=== PATIENT | male | born 1970 | race Hispanic/Latino ===

== ENCOUNTER 2020-07-05 20:43 | Inpatient (IN) | payer SELFPAY ==
[~2020-07-05] VITALS: Ht 167.6 cm; Wt 64.4 kg
[2020-07-05] MEDS ORDERED: NITROGLYCERIN 2% OINT 1 GM PKT TOP ONE (21:00)
[2020-07-05] MEDS ORDERED: ONDANSETRON HCL INJ 2MG/ML 2ML 2 MG/ML VIAL IV PRN (21:00)
[2020-07-05] MEDS ORDERED: SODIUM CHLORIDE 0.9% 500ML 500 ML IV STA (21:02)
[2020-07-05] MEDS ORDERED: LABETALOL HCL 5 MG/ML 20ML VIAL IV STA (21:05)
[2020-07-05] MEDS ORDERED: LABETALOL HCL 20 ML ONE (21:15)
[2020-07-05] MEDS ORDERED: ONDANSETRON HCL INJ 2MG/ML 2ML 2 MG/ML VIAL ONE (21:15)
[2020-07-05] MEDS ORDERED: NITROGLYCERIN 2% OINT 1 GM PKT ONE (21:15)
[2020-07-05] MEDS ORDERED: SODIUM CHLORIDE 0.9% 500ML 500 ML ONE (21:15)
[2020-07-05] MEDS ORDERED: ACETAMINOPHEN 325 MG TAB PO ONE (21:15)
[2020-07-05] MEDS ORDERED: CEFTRIAXONE SOD 1 GRAM/0.9% SOD CHL 50ML BAG IV SCH (21:15)
[2020-07-05] MEDS ORDERED: AZITHROMYCIN 500MG/SOD CHL 0.9% 250ML BAG IV SCH (21:15)
[2020-07-05] MEDS ORDERED: AZITHROMYCIN 500MG/NS 250 ML 250 ML ONE (21:17)
[2020-07-05] MEDS ORDERED: CEFTRIAXONE SOD 1 GM VIAL ONE (21:17)
[2020-07-05] MEDS ORDERED: ACETAMINOPHEN 325 MG TAB ONE (21:20)
[2020-07-05] MEDS ORDERED: DEXTROSE 50% SYRINGE 50 ML IV PRN (23:30)
[2020-07-05] MEDS ORDERED: SODIUM CHLORIDE 0.9% 1000ML 1,000 ML IV STA (23:30)
[2020-07-05] MEDS ORDERED: DEXAMETHASONE SOD PHOS 10 MG/1 ML VIAL IV STA (23:30)
[2020-07-05 23:40] VITALS: BP 156/82
[2020-07-06] VITALS (17 sets, daily range): BP systolic 104–196; BP diastolic 47–105
[2020-07-06 05:57] LABS: BASOPHILS # (AUTO) 0.1 (0.0-0.1); BASOPHILS % 0.4 % (0.0-1.0); EOSINOPHILS % 0.2 % (0.0-6.0); HEMATOCRIT 27.6 % (38.2-49.6); HEMOGLOBIN 8.7 g/dL (14.0-18.0); LYMPHOCYTES # (AUTO) 0.3 (1.0-3.2); LYMPHOCYTES % 2.5 % (18.0-39.1); MEAN CORPUSCULAR HEMOGLOBIN 28.9 pg (28-32); MEAN CORPUSCULAR HGB CONC 31.5 g/dL (31-35); MEAN CORPUSCULAR VOLUME 91.7 fL (81-99); MONOCYTES # (AUTO) 0.3 (0.2-0.8); MONOCYTES % 2.4 % (4.4-11.3); NEUTROPHILS # (AUTO) 10.6 (2.1-6.9); NEUTROPHILS % 94.1 % (38.7-80.0); PLATELET COUNT 212 x10e3/uL (140-360); RED BLOOD COUNT 3.01 x10e6/uL (4.3-5.7); RED CELL DISTRIBUTION WIDTH 15.9 % (11.7-14.4)
[2020-07-06 05:59] LABS: ANION GAP 13.8 mmol/L (8-16); CREATININE, SERUM 6.08 mg/dL (0.72-1.25); POTASSIUM 5.8 mmol/L (3.5-5.1)
[2020-07-06 06:20] LABS: CREATINE KINASE 189 IU/L (30-200)
[2020-07-06] MEDS: INSULIN REGULAR, HUMAN 100 UNIT/1 ML 3ML VIAL SQ SCH ×4 (07:30→22:22)
[2020-07-06] MEDS ORDERED: CALCIUM CHLORIDE 13.6 MEQ in SODIUM CHLORIDE 0.9% 100 ML 100 ML IV ONE (10:00)
[2020-07-06] MEDS ORDERED: DEXTROSE 50% SYRINGE 50 ML IV ONE (10:15)
[2020-07-06] MEDS ORDERED: INSULIN REGULAR, HUMAN 100 UNIT/1 ML 3ML VIAL IV ONE (10:15)
[2020-07-06] MEDS ORDERED: DEXAMETHASONE SOD PHOS 10 MG/1 ML VIAL IV SCH (10:30)
[2020-07-06] MEDS ORDERED: SOD POLYSTYRENE SULFONATE SUSP 15 GM/60 ML BTL PO ONE (10:30)
[2020-07-06] MEDS ORDERED: CALCIUM GLUCONATE 10% INJ 4.65 MEQ in SODIUM CHLORIDE 0.9% 50ML 50 ML IV ONE (11:00)
[2020-07-06] MEDS ORDERED: LABETALOL HCL 20 ML ONE (11:29)
[2020-07-06] MEDS ORDERED: LABETALOL HCL 5 MG/ML 20ML VIAL IV ONE (11:45)
[2020-07-06] MEDS: SODIUM BICARBONATE 8.4% 150 ML in DEXTROSE 5% 1,000 ML IV SCH (12:32)
[2020-07-06] MEDS: ZINC SULFATE 220 MG CAP PO SCH (12:32)
[2020-07-06] MEDS: CLONIDINE HCL 0.3MG/24 HR PATCH TOP SCH (13:40)
[2020-07-06] MEDS ORDERED: HYDRALAZINE HCL 20 MG/ML VIAL IV ONE (13:50)
[2020-07-06] MEDS ORDERED: HEPARIN SOD (PORCINE) 1000 UNIT/ML SDV ONE (14:05)
[2020-07-06 14:07] LABS: CREATINE KINASE MB 4.9 ng/mL (0-5.0)
[2020-07-06 14:12] LABS: CLARITY,URINE CLEAR (CLEAR); COLOR,URINE YELLOW (YELLOW); LEUKOCYTE ESTERASE ,URINE NEGATIVE (NEGATIVE); NITRITE,URINE NEGATIVE (NEGATIVE)
[2020-07-06 14:13] LABS: PROTEIN,URINE DIPSTICK >=300 (NEGATIVE)
[2020-07-06 14:16] LABS: KETONES,URINE NEGATIVE (NEGATIVE); URINE UROBILINOGEN 0.2 mg/dL (0.2 - 1)
[2020-07-06 14:21] LABS: BACTERIA,URINE MODERATE /HPF; EPITHELIAL CELLS,URINE RARE /LPF; HYALINE CASTS 0-1 (0-1); RBC,URINE 0-5 /HPF (0-5)
[2020-07-06] MEDS: ASCORBIC ACID 500 MG TAB PO SCH (17:16)
[2020-07-06 19:14] LABS: CREATINE KINASE MB 5.4 ng/mL (0-5.0)
[2020-07-06] MEDS ORDERED: SODIUM CHLORIDE 0.9% 1000ML 2,000 ML IV PRN (19:15)
[2020-07-06] MEDS ORDERED: HEPARIN SOD (PORCINE) 1000 UNIT/ML SDV IV PRN (19:15)
[2020-07-06] MEDS: LABETALOL HCL 5 MG/ML 20ML VIAL IV PRN (19:32)
[2020-07-06] MEDS ORDERED: ACETAMINOPHEN 325 MG TAB ONE (21:43)
[2020-07-06] MEDS: AZITHROMYCIN 500MG/NS 250 ML 250 ML IV SCH (22:21)
[2020-07-06] MEDS: ACETAMINOPHEN 325 MG TAB PO PRN (22:23)
[2020-07-07] VITALS (17 sets, daily range): BP systolic 141–194; BP diastolic 75–100
[2020-07-07] MEDS: LABETALOL HCL 5 MG/ML 20ML VIAL IV PRN
[2020-07-07] MEDS: SODIUM BICARBONATE 8.4% 150 ML in DEXTROSE 5% 1,000 ML IV SCH ×3 (03:19→23:05)
[2020-07-07] MEDS ORDERED: NICARDIPINE 20MG/200ML PREMIX 200 ML IV PRN ×2 (05:00→19:45)
[2020-07-07 06:01] LABS: BASOPHILS % 0.3 % (0.0-1.0); EOSINOPHILS % 0.1 % (0.0-6.0); HEMATOCRIT 24.4 % (38.2-49.6); HEMOGLOBIN 7.9 g/dL (14.0-18.0); LYMPHOCYTES # (AUTO) 1.2 (1.0-3.2); LYMPHOCYTES % 10.2 % (18.0-39.1); MEAN CORPUSCULAR HEMOGLOBIN 28.8 pg (28-32); MEAN CORPUSCULAR HGB CONC 32.4 g/dL (31-35); MEAN CORPUSCULAR VOLUME 89.1 fL (81-99); MONOCYTES # (AUTO) 0.7 (0.2-0.8); NEUTROPHILS # (AUTO) 9.9 (2.1-6.9); PLATELET COUNT 209 x10e3/uL (140-360); RED BLOOD COUNT 2.74 x10e6/uL (4.3-5.7); RED CELL DISTRIBUTION WIDTH 15.5 % (11.7-14.4)
[2020-07-07 06:19] LABS: ALBUMIN 2.1 g/dL (3.5-5.0); ALBUMIN/GLOBULIN RATIO 0.6 (0.8-2.0); ANION GAP 14.6 mmol/L (8-16); CREATININE, SERUM 4.85 mg/dL (0.72-1.25); POTASSIUM 3.6 mmol/L (3.5-5.1)
[2020-07-07 06:22] LABS: CALCIUM 6.9 mg/dL (8.4-10.2)
[2020-07-07] MEDS: INSULIN REGULAR, HUMAN 100 UNIT/1 ML 3ML VIAL SQ SCH ×5 (07:25→23:00)
[2020-07-07] MEDS: ASCORBIC ACID 500 MG TAB PO SCH ×2 (08:13→16:51)
[2020-07-07] MEDS: ZINC SULFATE 220 MG CAP PO SCH (08:13)
[2020-07-07] MEDS: OYST-CAL-D 500MG TABLET PO SCH ×2 (08:13→16:51)
[2020-07-07] MEDS: DEXAMETHASONE SOD PHOS INJ 4 MG/ML VIAL IV SCH (08:13)
[2020-07-07] MEDS ORDERED: ZINC SULFATE 50 MG CAP PO SCH (09:00)
[2020-07-07] MEDS: CEFTRIAXONE SOD 2 GM/NS 100 ML 100 ML IV SCH (10:00)
[2020-07-07] MEDS: ACETAMINOPHEN 325 MG TAB PO PRN (12:06)
[2020-07-07] MEDS: HYDRALAZINE HCL 25 MG TAB PO SCH ×2 (12:06→16:57)
[2020-07-07] MEDS: NIFEDIPINE CR 30 MG TAB PO SCH (12:07)
[2020-07-07] MEDS ORDERED: HYDRALAZINE HCL 25 MG TAB PO SCH (17:00)
[2020-07-07] MEDS ORDERED: ALTEPLASE 50 MG/VIAL (29 MILLION IU) IV ONE ×2 (19:00)
[2020-07-07] MEDS ORDERED: SODIUM CHLORIDE 0.9% 100 ML ONE (19:14)
[2020-07-07] MEDS: ASPIRIN 81 MG CHEW TAB PO SCH (19:31)
[2020-07-07] MEDS: AZITHROMYCIN 500MG/NS 250 ML 250 ML IV SCH (22:29)
[2020-07-08] VITALS (17 sets, daily range): BP systolic 129–163; BP diastolic 73–93
[2020-07-08 06:53] LABS: BASOPHILS % 0.2 % (0.0-1.0); EOSINOPHILS % 0.1 % (0.0-6.0); HEMATOCRIT 23.4 % (38.2-49.6); HEMOGLOBIN 7.4 g/dL (14.0-18.0); LYMPHOCYTES # (AUTO) 0.9 (1.0-3.2); LYMPHOCYTES % 9.1 % (18.0-39.1); MEAN CORPUSCULAR HEMOGLOBIN 28.7 pg (28-32); MEAN CORPUSCULAR HGB CONC 31.6 g/dL (31-35); MEAN CORPUSCULAR VOLUME 90.7 fL (81-99); MONOCYTES # (AUTO) 0.6 (0.2-0.8); MONOCYTES % 6.5 % (4.4-11.3); NEUTROPHILS # (AUTO) 8.2 (2.1-6.9); NEUTROPHILS % 83.7 % (38.7-80.0); PLATELET COUNT 178 x10e3/uL (140-360); RED BLOOD COUNT 2.58 x10e6/uL (4.3-5.7); RED CELL DISTRIBUTION WIDTH 14.9 % (11.7-14.4)
[2020-07-08 07:04] LABS: INR 1.28; PROTHROMBIN TIME 16.6 seconds (11.9-14.5)
[2020-07-08 07:12] LABS: ALBUMIN 1.9 g/dL (3.5-5.0); ALBUMIN/GLOBULIN RATIO 0.5 (0.8-2.0); ANION GAP 12.2 mmol/L (8-16); CREATININE, SERUM 4.54 mg/dL (0.72-1.25); POTASSIUM 3.2 mmol/L (3.5-5.1)
[2020-07-08 07:14] LABS: CALCIUM 6.2 mg/dL (8.4-10.2)
[2020-07-08] MEDS: INSULIN REGULAR, HUMAN 100 UNIT/1 ML 3ML VIAL SQ SCH ×4 (07:53→21:45)
[2020-07-08] MEDS: HYDRALAZINE HCL 25 MG TAB PO SCH ×2 (08:19→17:33)
[2020-07-08] MEDS: DEXAMETHASONE SOD PHOS INJ 4 MG/ML VIAL IV SCH (08:19)
[2020-07-08] MEDS: NIFEDIPINE CR 30 MG TAB PO SCH (08:19)
[2020-07-08] MEDS: ASCORBIC ACID 500 MG TAB PO SCH ×2 (08:19→17:33)
[2020-07-08] MEDS: ZINC SULFATE 220 MG CAP PO SCH (08:19)
[2020-07-08] MEDS: OYST-CAL-D 500MG TABLET PO SCH ×2 (08:19→17:33)
[2020-07-08] MEDS: CEFTRIAXONE SOD 2 GM/NS 100 ML 100 ML IV SCH (08:42)
[2020-07-08] MEDS ORDERED: NIFEDIPINE CR 30 MG TAB PO SCH (09:00)
[2020-07-08] MEDS ORDERED: POTASSIUM CHLORIDE 20 MEQ TAB CR PO PRN (10:15)
[2020-07-08] MEDS: SODIUM BICARBONATE 8.4% 150 ML in DEXTROSE 5% 1,000 ML IV SCH ×2 (10:51→22:31)
[2020-07-08] MEDS: AZITHROMYCIN 500MG/NS 250 ML 250 ML IV SCH (22:07)
[2020-07-08] MEDS: ACETAMINOPHEN 325 MG TAB PO PRN (22:32)
[2020-07-09] VITALS (25 sets, daily range): BP systolic 126–171; BP diastolic 74–102
[2020-07-09 06:50] LABS: BASOPHILS % 0.2 % (0.0-1.0); HEMOGLOBIN 7.9 g/dL (14.0-18.0); LYMPHOCYTES % 10.4 % (18.0-39.1); MEAN CORPUSCULAR HEMOGLOBIN 27.8 pg (28-32); MEAN CORPUSCULAR HGB CONC 31.6 g/dL (31-35); MONOCYTES # (AUTO) 0.5 (0.2-0.8); MONOCYTES % 5.7 % (4.4-11.3); NEUTROPHILS # (AUTO) 7.8 (2.1-6.9); NEUTROPHILS % 83.3 % (38.7-80.0); PLATELET COUNT 183 x10e3/uL (140-360); RED BLOOD COUNT 2.84 x10e6/uL (4.3-5.7); RED CELL DISTRIBUTION WIDTH 14.6 % (11.7-14.4)
[2020-07-09 07:15] LABS: ALBUMIN 1.8 g/dL (3.5-5.0); ALBUMIN/GLOBULIN RATIO 0.5 (0.8-2.0); ANION GAP 16.5 mmol/L (8-16); CREATININE, SERUM 5.25 mg/dL (0.72-1.25); POTASSIUM 3.5 mmol/L (3.5-5.1)
[2020-07-09 07:22] LABS: CALCIUM 6.2 mg/dL (8.4-10.2)
[2020-07-09] MEDS: ASPIRIN 325 MG TAB PO SCH (08:02)
[2020-07-09] MEDS: HYDRALAZINE HCL 25 MG TAB PO SCH ×2 (08:02→16:41)
[2020-07-09] MEDS: ASPIRIN 81 MG CHEW TAB PO SCH (08:02)
[2020-07-09] MEDS: CEFTRIAXONE SOD 2 GM/NS 100 ML 100 ML IV SCH (08:02)
[2020-07-09] MEDS: DEXAMETHASONE SOD PHOS INJ 4 MG/ML VIAL IV SCH (08:02)
[2020-07-09] MEDS: NIFEDIPINE CR 30 MG TAB PO SCH (08:03)
[2020-07-09] MEDS: ASCORBIC ACID 500 MG TAB PO SCH ×2 (08:03→16:41)
[2020-07-09] MEDS: OYST-CAL-D 500MG TABLET PO SCH ×2 (08:03→16:41)
[2020-07-09] MEDS: ZINC SULFATE 220 MG CAP PO SCH (08:03)
[2020-07-09] MEDS: INSULIN REGULAR, HUMAN 100 UNIT/1 ML 3ML VIAL SQ SCH ×4 (08:04→22:00)
[2020-07-09] MEDS: SODIUM BICARBONATE 8.4% 150 ML in DEXTROSE 5% 1,000 ML IV SCH (09:51)
[2020-07-09] MEDS ORDERED: VANCOMYCIN 1GM/NS 250 ML 250 ML IV ONE (10:30)
[2020-07-09 10:44] LABS: ABG PCO2 40 mmHg (35-45); ABG PH 7.51 (7.35-7.45); ABG PO2 32 mmHg (80-105)
[2020-07-09 10:45] LABS: ABG HCO3 32 mmol/L (22-26); ABG TCO2 34
[2020-07-09] MEDS ORDERED: CALCIUM GLUCONATE 10% INJ 4.65 MEQ in SODIUM CHLORIDE 0.9% 50ML 50 ML IV ONE (11:00)
[2020-07-09] MEDS ORDERED: SODIUM CHLORIDE 0.9% 250ML 500 ML IV PRN (12:00)
[2020-07-09] MEDS ORDERED: HEPARIN SOD (PORCINE) 1000 UNIT/ML SDV IV PRN (12:00)
[2020-07-09] MEDS ORDERED: MANNITOL 25% 12.5GM/50 ML VIAL IV PRN (12:00)
[2020-07-09] MEDS ORDERED: PIPER-TAZ 3.375 GM 50 ML IV SCH (12:00)
[2020-07-09] MEDS ORDERED: ALBUMIN 25% 12.5GM 0.25 GM/ML BTL IV PRN (12:00)
[2020-07-09] MEDS ORDERED: ENOXAPARIN SOD INJ 40 MG/0.4 ML SYR SC SCH (17:00)
[2020-07-09] MEDS: AZITHROMYCIN 500MG/NS 250 ML 250 ML IV SCH (20:25)
[2020-07-09] MEDS: ACETAMINOPHEN 325 MG TAB PO PRN (20:47)
[2020-07-09] MEDS: PIPER-TAZ 3.375 GM 50 ML IV SCH (23:00)
[2020-07-10] VITALS (25 sets, daily range): BP systolic 115–212; BP diastolic 70–107
[2020-07-10] MEDS: ACETAMINOPHEN 325 MG TAB PO PRN ×2 (02:59→09:19)
[2020-07-10] MEDS: PIPER-TAZ 3.375 GM 50 ML IV SCH ×2 (05:05→10:04)
[2020-07-10] MEDS ORDERED: MAGNESIUM HYDROXIDE 30 ML UDC ONE (05:41)
[2020-07-10 06:08] LABS: BASOPHILS % 0.2 % (0.0-1.0); HEMATOCRIT 26.9 % (38.2-49.6); HEMOGLOBIN 8.3 g/dL (14.0-18.0); LYMPHOCYTES # (AUTO) 0.7 (1.0-3.2); LYMPHOCYTES % 4.3 % (18.0-39.1); MEAN CORPUSCULAR HEMOGLOBIN 27.9 pg (28-32); MEAN CORPUSCULAR HGB CONC 30.9 g/dL (31-35); MEAN CORPUSCULAR VOLUME 90.3 fL (81-99); MONOCYTES # (AUTO) 0.3 (0.2-0.8); MONOCYTES % 1.6 % (4.4-11.3); NEUTROPHILS # (AUTO) 15.4 (2.1-6.9); NEUTROPHILS % 93.3 % (38.7-80.0); PLATELET COUNT 229 x10e3/uL (140-360); RED BLOOD COUNT 2.98 x10e6/uL (4.3-5.7); RED CELL DISTRIBUTION WIDTH 14.6 % (11.7-14.4)
[2020-07-10 06:32] LABS: ALBUMIN 1.9 g/dL (3.5-5.0); ALBUMIN/GLOBULIN RATIO 0.5 (0.8-2.0); ANION GAP 15.8 mmol/L (8-16); CALCIUM 7.1 mg/dL (8.4-10.2); CREATININE, SERUM 3.48 mg/dL (0.72-1.25); POTASSIUM 3.8 mmol/L (3.5-5.1)
[2020-07-10] MEDS: NIFEDIPINE CR 30 MG TAB PO SCH (08:16)
[2020-07-10] MEDS: ASCORBIC ACID 500 MG TAB PO SCH ×2 (08:16→16:23)
[2020-07-10] MEDS: OYST-CAL-D 500MG TABLET PO SCH ×2 (08:16→16:23)
[2020-07-10] MEDS: ZINC SULFATE 220 MG CAP PO SCH (08:16)
[2020-07-10] MEDS: DEXAMETHASONE SOD PHOS INJ 4 MG/ML VIAL IV SCH (08:16)
[2020-07-10] MEDS: HYDRALAZINE HCL 25 MG TAB PO SCH ×2 (08:16→16:23)
[2020-07-10] MEDS: ASPIRIN 325 MG TAB PO SCH (08:16)
[2020-07-10] MEDS: INSULIN REGULAR, HUMAN 100 UNIT/1 ML 3ML VIAL SQ SCH ×4 (08:21→21:00)
[2020-07-10] MEDS ORDERED: FLUCONAZOLE 100 MG/NS 50 ML 50 ML IV SCH (09:30)
[2020-07-10] MEDS ORDERED: NOREPINEPHRINE 8 MG/D5W 250 ML 250 ML ONE (09:45)
[2020-07-10] MEDS ORDERED: PROPOFOL IV EMULSION 10MG/ML 100 ML IV PRN (10:00)
[2020-07-10] MEDS: LABETALOL HCL 5 MG/ML 20ML VIAL IV PRN (10:05)
[2020-07-10] MEDS: FENTANYL CITRATE INJ 2,000 MCG in SODIUM CHLORIDE 0.9% 250ML 210 ML IV PRN ×2 (10:25→18:04)
[2020-07-10] MEDS ORDERED: FENTANYL 2000MCG/NS 250 250 ML ONE (10:26)
[2020-07-10 10:29] LABS: ABG HCO3 25 mmol/L (22-26); ABG PCO2 35 mmHg (35-45); ABG PH 7.46 (7.35-7.45); ABG PO2 39 mmHg (80-105); ABG TCO2 26
[2020-07-10] MEDS ORDERED: VECURONIUM BROMIDE FOR INJ 20 MG VIAL ONE (13:04)
[2020-07-10] MEDS ORDERED: ETOMIDATE 2 MG/ML 10 ML INJ IV ONE (13:04)
[2020-07-10 13:51] LABS: ABG HCO3 28 mmol/L (22-26); ABG PCO2 44 mmHg (35-45); ABG PH 7.41 (7.35-7.45); ABG PO2 194 mmHg (80-105); ABG TCO2 29
[2020-07-10] MEDS: LINEZOLID 600 MG/D5W 300ML 300 ML IV SCH (16:22)
[2020-07-10] MEDS: MEROPENEM 1GM 100 ML IV SCH (17:30)
[2020-07-10] MEDS: PROPOFOL IV EMULSION 50 ML IV PRN ×2 (17:43→21:40)
[2020-07-10] MEDS: HEPARIN SOD (PORCINE) 5,000 UNIT/ML VIAL SC SCH (21:39)
[2020-07-11] VITALS (17 sets, daily range): BP systolic 92–154; BP diastolic 56–94
[2020-07-11] MEDS ORDERED: LACTULOSE SYRUP 20 GM/30 ML UDC PO ONE
[2020-07-11] MEDS ORDERED: BISACODYL 10 MG SUPP PR ONE
[2020-07-11] MEDS: LINEZOLID 600 MG/D5W 300ML 300 ML IV SCH ×2 (01:42→14:25)
[2020-07-11] MEDS: PROPOFOL IV EMULSION 50 ML IV PRN ×4 (04:00→22:42)
[2020-07-11 05:32] LABS: BASOPHILS % 0.2 % (0.0-1.0); HEMATOCRIT 26.3 % (38.2-49.6); HEMOGLOBIN 8.1 g/dL (14.0-18.0); LYMPHOCYTES # (AUTO) 0.6 (1.0-3.2); LYMPHOCYTES % 5.1 % (18.0-39.1); MEAN CORPUSCULAR HEMOGLOBIN 28.6 pg (28-32); MEAN CORPUSCULAR HGB CONC 30.8 g/dL (31-35); MEAN CORPUSCULAR VOLUME 92.9 fL (81-99); MONOCYTES # (AUTO) 0.2 (0.2-0.8); MONOCYTES % 1.6 % (4.4-11.3); NEUTROPHILS # (AUTO) 11.5 (2.1-6.9); NEUTROPHILS % 92.7 % (38.7-80.0); PLATELET COUNT 230 x10e3/uL (140-360); RED BLOOD COUNT 2.83 x10e6/uL (4.3-5.7); RED CELL DISTRIBUTION WIDTH 14.9 % (11.7-14.4)
[2020-07-11 05:54] LABS: ALBUMIN 1.7 g/dL (3.5-5.0); ALBUMIN/GLOBULIN RATIO 0.4 (0.8-2.0); ANION GAP 13.4 mmol/L (8-16); CALCIUM 7.4 mg/dL (8.4-10.2); CREATININE, SERUM 3.17 mg/dL (0.72-1.25); POTASSIUM 4.4 mmol/L (3.5-5.1)
[2020-07-11] MEDS: INSULIN REGULAR, HUMAN 100 UNIT/1 ML 3ML VIAL SQ SCH ×3 (06:30→17:39)
[2020-07-11] MEDS: DEXAMETHASONE SOD PHOS INJ 4 MG/ML VIAL IV SCH (08:26)
[2020-07-11] MEDS: ASCORBIC ACID 500 MG TAB PO SCH ×2 (08:27→17:22)
[2020-07-11] MEDS: OYST-CAL-D 500MG TABLET PO SCH ×2 (08:27→17:22)
[2020-07-11] MEDS: ACETAMINOPHEN 325 MG TAB PO PRN (08:27)
[2020-07-11] MEDS: HYDRALAZINE HCL 25 MG TAB PO SCH ×2 (08:27→18:14)
[2020-07-11] MEDS: ASPIRIN 325 MG TAB PO SCH (08:27)
[2020-07-11] MEDS: HEPARIN SOD (PORCINE) 5,000 UNIT/ML VIAL SC SCH ×2 (08:29→20:41)
[2020-07-11] MEDS: FENTANYL 2000MCG/NS 250 250 ML IV PRN ×2 (08:33→18:53)
[2020-07-11 08:53] LABS: ABG PH 7.37 (7.35-7.45)
[2020-07-11 08:54] LABS: ABG HCO3 28 mmol/L (22-26); ABG PCO2 49 mmHg (35-45); ABG PO2 46 mmHg (80-105); ABG TCO2 30
[2020-07-11] MEDS: NIFEDIPINE CR 30 MG TAB PO SCH (09:00)
[2020-07-11] MEDS: MEROPENEM 1GM 100 ML IV SCH (17:22)
[2020-07-12] VITALS (17 sets, daily range): BP systolic 94–157; BP diastolic 59–87
[2020-07-12] MEDS: INSULIN REGULAR, HUMAN 100 UNIT/1 ML 3ML VIAL SQ SCH ×4 (00:06→18:10)
[2020-07-12] MEDS: LINEZOLID 600 MG/D5W 300ML 300 ML IV SCH ×2 (02:10→13:36)
[2020-07-12] MEDS: PROPOFOL IV EMULSION 50 ML IV PRN ×4 (02:30→21:23)
[2020-07-12] MEDS: FENTANYL 2000MCG/NS 250 250 ML IV PRN ×2 (04:05→20:06)
[2020-07-12 04:55] LABS: HEMATOCRIT 24.5 % (38.2-49.6); HEMOGLOBIN 7.5 g/dL (14.0-18.0); LYMPHOCYTES # (AUTO) 0.5 (1.0-3.2); LYMPHOCYTES % 5.1 % (18.0-39.1); MEAN CORPUSCULAR HEMOGLOBIN 28.5 pg (28-32); MEAN CORPUSCULAR HGB CONC 30.6 g/dL (31-35); MEAN CORPUSCULAR VOLUME 93.2 fL (81-99); MONOCYTES # (AUTO) 0.2 (0.2-0.8); MONOCYTES % 2.3 % (4.4-11.3); PLATELET COUNT 209 x10e3/uL (140-360); RED BLOOD COUNT 2.63 x10e6/uL (4.3-5.7); RED CELL DISTRIBUTION WIDTH 14.9 % (11.7-14.4)
[2020-07-12 05:10] LABS: INR 1.22
[2020-07-12 05:12] LABS: PARTIAL THROMBOPLASTIN TIME 65.6 seconds (23.8-35.5)
[2020-07-12 05:15] LABS: ALBUMIN 1.5 g/dL (3.5-5.0); ALBUMIN/GLOBULIN RATIO 0.4 (0.8-2.0); ANION GAP 16.9 mmol/L (8-16); CALCIUM 7.4 mg/dL (8.4-10.2); CREATININE, SERUM 4.63 mg/dL (0.72-1.25); POTASSIUM 4.9 mmol/L (3.5-5.1)
[2020-07-12 06:08] LABS: PHOSPHORUS 6.2 MG/DL (2.3-4.7)
[2020-07-12] MEDS: HYDRALAZINE HCL 25 MG TAB PO SCH ×2 (08:03→16:51)
[2020-07-12] MEDS: DEXAMETHASONE SOD PHOS INJ 4 MG/ML VIAL IV SCH (08:03)
[2020-07-12] MEDS: ASCORBIC ACID 500 MG TAB PO SCH ×2 (08:04→16:51)
[2020-07-12] MEDS: ASPIRIN 325 MG TAB PO SCH (08:04)
[2020-07-12] MEDS: OYST-CAL-D 500MG TABLET PO SCH ×2 (08:04→16:51)
[2020-07-12] MEDS: HEPARIN SOD (PORCINE) 5,000 UNIT/ML VIAL SC SCH (08:04)
[2020-07-12] MEDS ORDERED: HEPARIN SOD (PORCINE) 1000 UNIT/ML SDV ONE (09:01)
[2020-07-12] MEDS ORDERED: SODIUM CHLORIDE 0.9% 1000ML 2,000 ML ONE (09:02)
[2020-07-12 11:15] LABS: ABG PCO2 49 mmHg (35-45); ABG PH 7.37 (7.35-7.45); ABG PO2 225 mmHg (80-105)
[2020-07-12 11:16] LABS: ABG HCO3 28 mmol/L (22-26); ABG TCO2 30
[2020-07-12] MEDS: MEROPENEM 1GM 100 ML IV SCH (16:51)
[2020-07-12] MEDS: ENOXAPARIN 30 MG/0.3 ML SYR SC SCH (16:53)
[2020-07-12] MEDS ORDERED: ETOMIDATE 2 MG/ML 10 ML INJ IV STA (20:10)
[2020-07-12] MEDS ORDERED: ROCURONIUM BROMIDE 1 ML IV ONE (20:15)
[2020-07-12 22:48] LABS: ABG HCO3 28 mmol/L (22-26); ABG PCO2 54 mmHg (35-45); ABG PH 7.32 (7.35-7.45); ABG PO2 156 mmHg (80-105); ABG TCO2 29
[2020-07-13] VITALS (27 sets, daily range): BP systolic 117–186; BP diastolic 64–100
[2020-07-13] MEDS: PROPOFOL IV EMULSION 50 ML IV PRN ×5 (00:12→05:58)
[2020-07-13] MEDS: INSULIN REGULAR, HUMAN 100 UNIT/1 ML 3ML VIAL SQ SCH ×5 (00:45→23:50)
[2020-07-13] MEDS: FENTANYL 2000MCG/NS 250 250 ML IV PRN ×2 (01:05→07:35)
[2020-07-13] MEDS: LINEZOLID 600 MG/D5W 300ML 300 ML IV SCH ×2 (01:40→13:19)
[2020-07-13 03:01] LABS: BASOPHILS % 0.1 % (0.0-1.0); HEMATOCRIT 25.1 % (38.2-49.6); HEMOGLOBIN 7.6 g/dL (14.0-18.0); LYMPHOCYTES # (AUTO) 0.5 (1.0-3.2); LYMPHOCYTES % 3.1 % (18.0-39.1); MEAN CORPUSCULAR HGB CONC 30.3 g/dL (31-35); MEAN CORPUSCULAR VOLUME 92.6 fL (81-99); MONOCYTES # (AUTO) 0.4 (0.2-0.8); MONOCYTES % 2.6 % (4.4-11.3); NEUTROPHILS # (AUTO) 13.4 (2.1-6.9); NEUTROPHILS % 93.3 % (38.7-80.0); PLATELET COUNT 222 x10e3/uL (140-360); RED BLOOD COUNT 2.71 x10e6/uL (4.3-5.7); RED CELL DISTRIBUTION WIDTH 15.3 % (11.7-14.4)
[2020-07-13 03:10] LABS: INR 1.14; PROTHROMBIN TIME 15.2 seconds (11.9-14.5)
[2020-07-13 03:11] LABS: PARTIAL THROMBOPLASTIN TIME 54.1 seconds (23.8-35.5)
[2020-07-13 03:21] LABS: ALBUMIN 1.5 g/dL (3.5-5.0); ALBUMIN/GLOBULIN RATIO 0.4 (0.8-2.0); ANION GAP 16.1 mmol/L (8-16); CALCIUM 7.1 mg/dL (8.4-10.2); CREATININE, SERUM 3.19 mg/dL (0.72-1.25); POTASSIUM 4.1 mmol/L (3.5-5.1)
[2020-07-13] MEDS: OYST-CAL-D 500MG TABLET PO SCH ×2 (08:25→15:14)
[2020-07-13] MEDS: HYDRALAZINE HCL 25 MG TAB PO SCH ×2 (08:25→15:21)
[2020-07-13] MEDS: ASPIRIN 325 MG TAB PO SCH (08:25)
[2020-07-13] MEDS: ASCORBIC ACID 500 MG TAB PO SCH ×2 (08:25→15:15)
[2020-07-13] MEDS: DEXAMETHASONE SOD PHOS INJ 4 MG/ML VIAL IV SCH (08:27)
[2020-07-13] MEDS: DEXMEDETOMIDINE 200MCG/NS 50ML 50 ML IV PRN ×2 (09:34→15:51)
[2020-07-13] MEDS: CLONIDINE HCL 0.3MG/24 HR PATCH TOP SCH (13:19)
[2020-07-13 13:42] LABS: ABG HCO3 26 mmol/L (22-26); ABG PCO2 45 mmHg (35-45); ABG PH 7.38 (7.35-7.45); ABG PO2 76 mmHg (80-105); ABG TCO2 28
[2020-07-13 16:05] LABS: ABG HCO3 24 mmol/L (22-26); ABG PCO2 40 mmHg (35-45); ABG PH 7.38 (7.35-7.45); ABG PO2 75 mmHg (80-105); ABG TCO2 25
[2020-07-13] MEDS: ENOXAPARIN 30 MG/0.3 ML SYR SC SCH (16:45)
[2020-07-13] MEDS: MEROPENEM 1GM 100 ML IV SCH (16:45)
[2020-07-13] MEDS: LABETALOL HCL 5 MG/ML 20ML VIAL IV PRN ×2 (17:39→21:40)
[2020-07-14] VITALS (29 sets, daily range): BP systolic 89–188; BP diastolic 60–92
[2020-07-14] MEDS: LABETALOL HCL 5 MG/ML 20ML VIAL IV PRN ×2 (01:40→05:55)
[2020-07-14] MEDS: LINEZOLID 600 MG/D5W 300ML 300 ML IV SCH ×2 (02:14→15:15)
[2020-07-14 05:31] LABS: BASOPHILS % 0.2 % (0.0-1.0); HEMATOCRIT 27.8 % (38.2-49.6); HEMOGLOBIN 8.5 g/dL (14.0-18.0); LYMPHOCYTES # (AUTO) 0.7 (1.0-3.2); LYMPHOCYTES % 4.6 % (18.0-39.1); MEAN CORPUSCULAR HEMOGLOBIN 27.7 pg (28-32); MEAN CORPUSCULAR HGB CONC 30.6 g/dL (31-35); MEAN CORPUSCULAR VOLUME 90.6 fL (81-99); MONOCYTES # (AUTO) 0.4 (0.2-0.8); MONOCYTES % 2.6 % (4.4-11.3); NEUTROPHILS # (AUTO) 14.1 (2.1-6.9); NEUTROPHILS % 88.5 % (38.7-80.0); PLATELET COUNT 273 x10e3/uL (140-360); RED BLOOD COUNT 3.07 x10e6/uL (4.3-5.7); RED CELL DISTRIBUTION WIDTH 14.7 % (11.7-14.4)
[2020-07-14 05:50] LABS: ALBUMIN 1.6 g/dL (3.5-5.0); ALBUMIN/GLOBULIN RATIO 0.4 (0.8-2.0); ANION GAP 20.1 mmol/L (8-16); CALCIUM 7.3 mg/dL (8.4-10.2); CREATININE, SERUM 4.86 mg/dL (0.72-1.25); MAGNESIUM 2.1 MG/DL (1.3-2.1); PHOSPHORUS 3.1 MG/DL (2.3-4.7); POTASSIUM 4.1 mmol/L (3.5-5.1)
[2020-07-14] MEDS: INSULIN REGULAR, HUMAN 100 UNIT/1 ML 3ML VIAL SQ SCH ×3 (06:15→17:48)
[2020-07-14] MEDS: HYDRALAZINE HCL 25 MG TAB PO SCH ×2 (08:28→17:00)
[2020-07-14] MEDS: ASCORBIC ACID 500 MG TAB PO SCH ×2 (08:28→17:00)
[2020-07-14] MEDS: OYST-CAL-D 500MG TABLET PO SCH ×2 (08:28→17:00)
[2020-07-14] MEDS: ASPIRIN 325 MG TAB PO SCH (08:28)
[2020-07-14] MEDS: DEXAMETHASONE SOD PHOS INJ 4 MG/ML VIAL IV SCH (08:28)
[2020-07-14] MEDS: ACETAMINOPHEN 325 MG TAB PO PRN (09:28)
[2020-07-14] MEDS ORDERED: PROPOFOL IV EMULSION 50 ML IV ONE (11:23)
[2020-07-14] MEDS ORDERED: [UNRECOGNIZED DRUG - OTHER] ONE (11:24)
[2020-07-14] MEDS ORDERED: FENTANYL ONE (11:24)
[2020-07-14] MEDS ORDERED: WATER STERILE 10 ML VIAL IV ONE (11:30)
[2020-07-14] MEDS ORDERED: VECURONIUM BROMIDE FOR INJ 20 MG VIAL IV ONE (11:30)
[2020-07-14] MEDS ORDERED: ETOMIDATE 40 MG/ 20ML VIAL IV ONE (12:01)
[2020-07-14] MEDS ORDERED: MIDAZOLAM HCL 2 MG/2 ML VIAL INJ ONE (12:02)
[2020-07-14] MEDS: PROPOFOL IV EMULSION 50 ML IV PRN ×3 (16:17→23:47)
[2020-07-14] MEDS: MEROPENEM 1GM 100 ML IV SCH (17:04)
[2020-07-14] MEDS: ENOXAPARIN 30 MG/0.3 ML SYR SC SCH (17:14)
[2020-07-14 17:38] LABS: ABG HCO3 26 mmol/L (22-26); ABG PCO2 47 mmHg (35-45); ABG PH 7.36 (7.35-7.45); ABG PO2 230 mmHg (80-105); ABG TCO2 28
[2020-07-14] MEDS ORDERED: DEXTROSE 50% SYRINGE 50 ML IV PRN (21:00)
[2020-07-15] VITALS (26 sets, daily range): BP systolic 96–157; BP diastolic 57–85
[2020-07-15] MEDS: INSULIN LISPRO 100 UNIT/1 ML 3ML VIAL SQ SCH ×4 (00:40→17:53)
[2020-07-15] MEDS: LINEZOLID 600 MG/D5W 300ML 300 ML IV SCH ×2 (01:51→14:34)
[2020-07-15] MEDS: PROPOFOL IV EMULSION 50 ML IV PRN ×7 (02:18→23:47)
[2020-07-15 05:30] LABS: BASOPHILS % 0.2 % (0.0-1.0); EOSINOPHILS % 0.1 % (0.0-6.0); HEMATOCRIT 25.4 % (38.2-49.6); HEMOGLOBIN 7.8 g/dL (14.0-18.0); LYMPHOCYTES % 5.6 % (18.0-39.1); MEAN CORPUSCULAR HEMOGLOBIN 27.7 pg (28-32); MEAN CORPUSCULAR HGB CONC 30.7 g/dL (31-35); MEAN CORPUSCULAR VOLUME 90.1 fL (81-99); MONOCYTES # (AUTO) 0.5 (0.2-0.8); NEUTROPHILS # (AUTO) 14.7 (2.1-6.9); NEUTROPHILS % 86.3 % (38.7-80.0); PLATELET COUNT 219 x10e3/uL (140-360); RED BLOOD COUNT 2.82 x10e6/uL (4.3-5.7); RED CELL DISTRIBUTION WIDTH 14.7 % (11.7-14.4)
[2020-07-15 05:55] LABS: ANION GAP 16.3 mmol/L (8-16); CALCIUM 7.6 mg/dL (8.4-10.2); MAGNESIUM 2.2 MG/DL (1.3-2.1); PHOSPHORUS 3.5 MG/DL (2.3-4.7); POTASSIUM 4.3 mmol/L (3.5-5.1)
[2020-07-15] MEDS: HYDRALAZINE HCL 25 MG TAB PO SCH ×2 (08:12→16:11)
[2020-07-15] MEDS: ASCORBIC ACID 500 MG TAB PO SCH ×2 (08:12→16:11)
[2020-07-15] MEDS: OYST-CAL-D 500MG TABLET PO SCH ×2 (08:12→16:11)
[2020-07-15] MEDS: ASPIRIN 325 MG TAB PO SCH (08:12)
[2020-07-15] MEDS ORDERED: DEXMEDETOMIDINE 200MCG/NS 50ML 50 ML IV PRN (12:00)
[2020-07-15] MEDS: MEROPENEM 1GM 100 ML IV SCH (16:11)
[2020-07-15] MEDS: ENOXAPARIN 30 MG/0.3 ML SYR SC SCH (16:11)
[2020-07-16] VITALS (16 sets, daily range): BP systolic 111–181; BP diastolic 72–94
[2020-07-16] MEDS: INSULIN LISPRO 100 UNIT/1 ML 3ML VIAL SQ SCH ×4 (00:35→15:53)
[2020-07-16] MEDS ORDERED: SODIUM CHLORIDE 0.9% 250ML 250 ML ONE (01:49)
[2020-07-16] MEDS: LINEZOLID 600 MG/D5W 300ML 300 ML IV SCH ×2 (02:04→13:43)
[2020-07-16] MEDS: PROPOFOL IV EMULSION 50 ML IV PRN ×3 (03:56→07:49)
[2020-07-16 05:20] LABS: BASOPHILS # (AUTO) 0.1 (0.0-0.1); BASOPHILS % 0.3 % (0.0-1.0); HEMATOCRIT 23.9 % (38.2-49.6); HEMOGLOBIN 7.4 g/dL (14.0-18.0); LYMPHOCYTES # (AUTO) 0.7 (1.0-3.2); LYMPHOCYTES % 3.8 % (18.0-39.1); MEAN CORPUSCULAR VOLUME 90.5 fL (81-99); NEUTROPHILS # (AUTO) 16.4 (2.1-6.9); NEUTROPHILS % 85.2 % (38.7-80.0); PLATELET COUNT 261 x10e3/uL (140-360); RED BLOOD COUNT 2.64 x10e6/uL (4.3-5.7); RED CELL DISTRIBUTION WIDTH 14.7 % (11.7-14.4)
[2020-07-16 05:39] LABS: ALBUMIN 1.4 g/dL (3.5-5.0); ALBUMIN/GLOBULIN RATIO 0.3 (0.8-2.0); ANION GAP 18.7 mmol/L (8-16); CALCIUM 7.6 mg/dL (8.4-10.2); CREATININE, SERUM 5.19 mg/dL (0.72-1.25); MAGNESIUM 2.4 MG/DL (1.3-2.1); PHOSPHORUS 4.2 MG/DL (2.3-4.7); POTASSIUM 4.7 mmol/L (3.5-5.1)
[2020-07-16] MEDS: HYDRALAZINE HCL 25 MG TAB PO SCH ×2 (08:27→17:00)
[2020-07-16] MEDS: ASPIRIN 325 MG TAB PO SCH (08:28)
[2020-07-16] MEDS: ASCORBIC ACID 500 MG TAB PO SCH ×2 (08:28→17:02)
[2020-07-16] MEDS: OYST-CAL-D 500MG TABLET PO SCH ×2 (08:28→17:02)
[2020-07-16] MEDS ORDERED: PROPOFOL IV EMULSION 10MG/ML 100 ML IV PRN (09:15)
[2020-07-16] MEDS ORDERED: ETOMIDATE 2 MG/ML 10 ML INJ IV ONE (12:08)
[2020-07-16] MEDS ORDERED: SODIUM CHLORIDE 0.9% 250ML 250 ML IV ONE (14:15)
[2020-07-16] MEDS ORDERED: HEPARIN SOD (PORCINE) 1000 UNIT/ML SDV ONE (16:49)
[2020-07-16] MEDS: MEROPENEM 1GM 100 ML IV SCH (17:02)
[2020-07-16] MEDS: ENOXAPARIN 30 MG/0.3 ML SYR SC SCH (17:02)
[2020-07-17] VITALS (15 sets, daily range): BP systolic 89–169; BP diastolic 57–95
[2020-07-17] MEDS: ACETAMINOPHEN 325 MG TAB PO PRN ×2 (00:27→23:49)
[2020-07-17] MEDS: LINEZOLID 600 MG/D5W 300ML 300 ML IV SCH ×2 (02:38→15:01)
[2020-07-17] MEDS: INSULIN LISPRO 100 UNIT/1 ML 3ML VIAL SQ SCH ×5 (06:00→23:50)
[2020-07-17 07:35] LABS: BASOPHILS # (AUTO) 0.1 (0.0-0.1); BASOPHILS % 0.3 % (0.0-1.0); EOSINOPHILS # (AUTO) 0.1 (0.0-0.4); EOSINOPHILS % 0.5 % (0.0-6.0); HEMATOCRIT 31.1 % (38.2-49.6); HEMOGLOBIN 9.9 g/dL (14.0-18.0); LYMPHOCYTES # (AUTO) 0.8 (1.0-3.2); LYMPHOCYTES % 3.3 % (18.0-39.1); MEAN CORPUSCULAR HEMOGLOBIN 28.3 pg (28-32); MEAN CORPUSCULAR HGB CONC 31.8 g/dL (31-35); MEAN CORPUSCULAR VOLUME 88.9 fL (81-99); MONOCYTES # (AUTO) 0.5 (0.2-0.8); MONOCYTES % 2.1 % (4.4-11.3); NEUTROPHILS # (AUTO) 21.2 (2.1-6.9); NEUTROPHILS % 89.1 % (38.7-80.0); PLATELET COUNT 283 x10e3/uL (140-360); RED CELL DISTRIBUTION WIDTH 14.5 % (11.7-14.4)
[2020-07-17 07:55] LABS: ALBUMIN 1.7 g/dL (3.5-5.0); ALBUMIN/GLOBULIN RATIO 0.4 (0.8-2.0); ANION GAP 16.8 mmol/L (8-16); CALCIUM 7.8 mg/dL (8.4-10.2); CREATININE, SERUM 3.67 mg/dL (0.72-1.25); POTASSIUM 3.8 mmol/L (3.5-5.1)
[2020-07-17 08:27] LABS: MAGNESIUM 1.9 MG/DL (1.3-2.1)
[2020-07-17 09:13] LABS: LYMPHOCYTES % (MANUAL) 4 % (19-48); MONOCYTES % (MANUAL) 4 % (3.4-9.0); MYELOCYTES % (MANUAL) 3 % (0-0); NEUTROPHILS % (MANUAL) 89 % (40-74); PLATELET ESTIMATE ADEQUATE; PLATELET MORPHOLOGY COMMENT NORMAL; RBC MORPHOLOGY COMMENT NORMAL
[2020-07-17 11:04] LABS: ABG HCO3 25 mmol/L (22-26); ABG PCO2 33 mmHg (35-45); ABG PH 7.48 (7.35-7.45); ABG PO2 36 mmHg (80-105); ABG TCO2 26
[2020-07-17] MEDS ORDERED: HEPARIN SOD (PORCINE) 1000 UNIT/ML SDV ONE (11:08)
[2020-07-17] MEDS ORDERED: ROCURONIUM BROMIDE 1 ML IV ONE (11:15)
[2020-07-17] MEDS: HYDRALAZINE HCL 25 MG TAB PO SCH ×2 (11:56→17:59)
[2020-07-17] MEDS: ASPIRIN 325 MG TAB PO SCH (11:57)
[2020-07-17] MEDS: OYST-CAL-D 500MG TABLET PO SCH ×2 (11:57→17:59)
[2020-07-17] MEDS: ASCORBIC ACID 500 MG TAB PO SCH ×2 (11:57→17:59)
[2020-07-17] MEDS: FENTANYL 2000MCG/NS 250 250 ML IV PRN ×3 (12:35→20:20)
[2020-07-17] MEDS ORDERED: VECURONIUM BROMIDE FOR INJ 20 MG VIAL ONE (12:43)
[2020-07-17] MEDS ORDERED: ETOMIDATE 2 MG/ML 10 ML INJ IV ONE (13:02)
[2020-07-17] MEDS ORDERED: MIDAZOLAM HCL 2 MG/2 ML VIAL ONE (13:02)
[2020-07-17] MEDS ORDERED: VECURONIUM BROMIDE FOR INJ 20 MG VIAL IV PRN (13:30)
[2020-07-17] MEDS ORDERED: NOREPINEPHRINE 8 MG/D5W 250 ML 250 ML ONE (14:16)
[2020-07-17 14:29] LABS: ABG HCO3 25 mmol/L (22-26); ABG PCO2 66 mmHg (35-45); ABG PH 7.18 (7.35-7.45); ABG PO2 55 mmHg (80-105); ABG TCO2 27
[2020-07-17] MEDS ORDERED: ALBUMIN 25% 12.5GM 0.25 GM/ML BTL IV ONE (14:30)
[2020-07-17] MEDS ORDERED: NOREPINEPHRINE 8 MG/D5W 250 ML 250 ML IV PRN (14:30)
[2020-07-17] MEDS ORDERED: ALBUMIN 25% 12.5GM 50ML 50 ML IV ONE (14:45)
[2020-07-17] MEDS: PROPOFOL IV EMULSION 10MG/ML 100 ML IV PRN (15:01)
[2020-07-17] MEDS ORDERED: TRIMETHOPRIM/SULFAMETHOXAZOLE 160 MG in DEXTROSE 5% 250ML 250 ML IV SCH (16:00)
[2020-07-17] MEDS: MEROPENEM 1GM 100 ML IV SCH (17:59)
[2020-07-17] MEDS: ENOXAPARIN 30 MG/0.3 ML SYR SC SCH (17:59)
[2020-07-17] MEDS: TOBRAMYCIN 40 MG/ML 2ML VIAL INH SCH (22:00)
[2020-07-18] VITALS (25 sets, daily range): BP systolic 94–159; BP diastolic 55–78
[2020-07-18] MEDS: LINEZOLID 600 MG/D5W 300ML 300 ML IV SCH ×2 (01:10→13:04)
[2020-07-18] MEDS: PROPOFOL IV EMULSION 10MG/ML 100 ML IV PRN ×3 (02:14→16:19)
[2020-07-18 04:43] LABS: BASOPHILS # (AUTO) 0.1 (0.0-0.1); BASOPHILS % 0.4 % (0.0-1.0); EOSINOPHILS # (AUTO) 0.1 (0.0-0.4); EOSINOPHILS % 0.3 % (0.0-6.0); HEMATOCRIT 24.5 % (38.2-49.6); HEMOGLOBIN 7.6 g/dL (14.0-18.0); LYMPHOCYTES # (AUTO) 0.9 (1.0-3.2); LYMPHOCYTES % 2.4 % (18.0-39.1); MEAN CORPUSCULAR HEMOGLOBIN 28.3 pg (28-32); MEAN CORPUSCULAR VOLUME 91.1 fL (81-99); MONOCYTES # (AUTO) 0.7 (0.2-0.8); MONOCYTES % 1.9 % (4.4-11.3); NEUTROPHILS # (AUTO) 34.2 (2.1-6.9); NEUTROPHILS % 92.2 % (38.7-80.0); PLATELET COUNT 283 x10e3/uL (140-360); RED BLOOD COUNT 2.69 x10e6/uL (4.3-5.7); RED CELL DISTRIBUTION WIDTH 14.9 % (11.7-14.4)
[2020-07-18 04:56] LABS: ANION GAP 16.7 mmol/L (8-16); CALCIUM 7.1 mg/dL (8.4-10.2); CREATININE, SERUM 3.42 mg/dL (0.72-1.25); POTASSIUM 4.7 mmol/L (3.5-5.1)
[2020-07-18] MEDS: INSULIN LISPRO 100 UNIT/1 ML 3ML VIAL SQ SCH ×3 (05:09→16:17)
[2020-07-18 05:51] LABS: ANISOCYTOSIS FEW; BAND NEUTROPHILS % (MANUAL) 15 %; LYMPHOCYTES % (MANUAL) 3 % (19-48); MONOCYTES % (MANUAL) 2 % (3.4-9.0); NEUTROPHILS % (MANUAL) 80 % (40-74); RBC MORPHOLOGY COMMENT ABNORMAL; SCHISTOCYTES FEW; TOXIC GRANULATION FEW
[2020-07-18 05:52] LABS: PLATELET ESTIMATE ADEQUATE; PLATELET MORPHOLOGY COMMENT NORMAL
[2020-07-18] MEDS: TOBRAMYCIN 40 MG/ML 2ML VIAL INH SCH ×3 (06:00→23:55)
[2020-07-18] MEDS: FENTANYL 2000MCG/NS 250 250 ML IV PRN ×2 (06:02→16:18)
[2020-07-18] MEDS: ASCORBIC ACID 500 MG TAB PO SCH ×2 (08:25→16:17)
[2020-07-18] MEDS: ASPIRIN 325 MG TAB PO SCH (08:25)
[2020-07-18] MEDS: OYST-CAL-D 500MG TABLET PO SCH ×2 (08:25→16:17)
[2020-07-18] MEDS: HYDRALAZINE HCL 25 MG TAB PO SCH ×2 (08:25→16:16)
[2020-07-18 09:22] LABS: ABG HCO3 23 mmol/L (22-26); ABG PCO2 53 mmHg (35-45); ABG PH 7.25 (7.35-7.45); ABG PO2 96 mmHg (80-105); ABG TCO2 25
[2020-07-18] MEDS: MEROPENEM 1GM 100 ML IV SCH (16:16)
[2020-07-18] MEDS: ENOXAPARIN 30 MG/0.3 ML SYR SC SCH (16:17)
[2020-07-19] VITALS (27 sets, daily range): BP systolic 77–152; BP diastolic 49–92
[2020-07-19] MEDS: INSULIN LISPRO 100 UNIT/1 ML 3ML VIAL SQ SCH ×5 (00:30→23:47)
[2020-07-19] MEDS: ACETAMINOPHEN 325 MG TAB PO PRN (00:34)
[2020-07-19] MEDS: FENTANYL 2000MCG/NS 250 250 ML IV PRN ×3 (00:37→22:30)
[2020-07-19] MEDS: PROPOFOL IV EMULSION 10MG/ML 100 ML IV PRN ×4 (00:38→22:30)
[2020-07-19] MEDS: LINEZOLID 600 MG/D5W 300ML 300 ML IV SCH ×2 (01:38→14:57)
[2020-07-19 04:48] LABS: BASOPHILS # (AUTO) 0.1 (0.0-0.1); BASOPHILS % 0.2 % (0.0-1.0); EOSINOPHILS # (AUTO) 0.3 (0.0-0.4); EOSINOPHILS % 1.1 % (0.0-6.0); HEMATOCRIT 21.4 % (38.2-49.6); LYMPHOCYTES # (AUTO) 0.8 (1.0-3.2); LYMPHOCYTES % 2.9 % (18.0-39.1); MEAN CORPUSCULAR HGB CONC 31.3 g/dL (31-35); MEAN CORPUSCULAR VOLUME 92.6 fL (81-99); MONOCYTES # (AUTO) 0.4 (0.2-0.8); MONOCYTES % 1.5 % (4.4-11.3); NEUTROPHILS # (AUTO) 24.2 (2.1-6.9); NEUTROPHILS % 91.2 % (38.7-80.0); PLATELET COUNT 283 x10e3/uL (140-360); RED BLOOD COUNT 2.31 x10e6/uL (4.3-5.7); RED CELL DISTRIBUTION WIDTH 14.9 % (11.7-14.4)
[2020-07-19 04:54] LABS: HEMOGLOBIN 6.7 g/dL (14.0-18.0)
[2020-07-19 05:06] LABS: ALBUMIN 1.3 g/dL (3.5-5.0); ALBUMIN/GLOBULIN RATIO 0.3 (0.8-2.0); ANION GAP 17.8 mmol/L (8-16); CALCIUM 7.2 mg/dL (8.4-10.2); CREATININE, SERUM 4.62 mg/dL (0.72-1.25); POTASSIUM 4.8 mmol/L (3.5-5.1)
[2020-07-19 06:02] LABS: BAND NEUTROPHILS % (MANUAL) 5 %; EOSINOPHILS % (MANUAL) 1 % (0-7); LYMPHOCYTES % (MANUAL) 3 % (19-48); MONOCYTES % (MANUAL) 4 % (3.4-9.0); NEUTROPHILS % (MANUAL) 87 % (40-74)
[2020-07-19 06:04] LABS: ANISOCYTOSIS SLIGHT; HYPOCHROMASIA SLIGHT; PLATELET ESTIMATE ADEQUATE; PLATELET MORPHOLOGY COMMENT NORMAL; RBC MORPHOLOGY COMMENT ABNORMAL
[2020-07-19 06:05] LABS: OVALOCYTES FEW
[2020-07-19] MEDS: TOBRAMYCIN 40 MG/ML 2ML VIAL INH SCH ×3 (07:27→22:20)
[2020-07-19] MEDS: HYDRALAZINE HCL 25 MG TAB PO SCH ×2 (08:18→16:08)
[2020-07-19] MEDS: ASCORBIC ACID 500 MG TAB PO SCH ×2 (08:18→16:09)
[2020-07-19] MEDS: OYST-CAL-D 500MG TABLET PO SCH ×2 (08:18→16:09)
[2020-07-19] MEDS: ASPIRIN 325 MG TAB PO SCH (08:18)
[2020-07-19] MEDS: BALSAM PERU/CASTOR OIL 60 GM OINT...G. TP SCH (08:18)
[2020-07-19 08:20] LABS: BASOPHILS % 0.2 % (0.0-1.0); EOSINOPHILS # (AUTO) 0.3 (0.0-0.4); EOSINOPHILS % 1.2 % (0.0-6.0); HEMATOCRIT 21.1 % (38.2-49.6); LYMPHOCYTES # (AUTO) 0.8 (1.0-3.2); LYMPHOCYTES % 3.1 % (18.0-39.1); MEAN CORPUSCULAR HGB CONC 30.8 g/dL (31-35); MEAN CORPUSCULAR VOLUME 90.9 fL (81-99); MONOCYTES # (AUTO) 0.3 (0.2-0.8); MONOCYTES % 1.3 % (4.4-11.3); NEUTROPHILS # (AUTO) 22.7 (2.1-6.9); NEUTROPHILS % 91.8 % (38.7-80.0); PLATELET COUNT 286 x10e3/uL (140-360); RED BLOOD COUNT 2.32 x10e6/uL (4.3-5.7)
[2020-07-19 08:26] LABS: HEMOGLOBIN 6.5 g/dL (14.0-18.0)
[2020-07-19] MEDS ORDERED: SODIUM CHLORIDE 0.9% 250ML 250 ML IV SCH ×2 (08:30→10:15)
[2020-07-19] MEDS ORDERED: HEPARIN SOD (PORCINE) 1000 UNIT/ML SDV IV PRN (10:45)
[2020-07-19] MEDS: MEROPENEM 1GM 100 ML IV SCH (16:08)
[2020-07-20] VITALS (18 sets, daily range): BP systolic 50–141; BP diastolic 47–74
[2020-07-20] MEDS: LINEZOLID 600 MG/D5W 300ML 300 ML IV SCH (02:00)
[2020-07-20] MEDS: PROPOFOL IV EMULSION 10MG/ML 100 ML IV PRN ×3 (03:32→18:31)
[2020-07-20] MEDS: ACETAMINOPHEN 325 MG TAB PO PRN (03:32)
[2020-07-20 05:35] LABS: BASOPHILS # (AUTO) 0.1 (0.0-0.1); BASOPHILS % 0.4 % (0.0-1.0); EOSINOPHILS # (AUTO) 0.2 (0.0-0.4); EOSINOPHILS % 1.2 % (0.0-6.0); HEMATOCRIT 27.2 % (38.2-49.6); HEMOGLOBIN 8.5 g/dL (14.0-18.0); LYMPHOCYTES # (AUTO) 0.4 (1.0-3.2); LYMPHOCYTES % 2.2 % (18.0-39.1); MEAN CORPUSCULAR HEMOGLOBIN 28.4 pg (28-32); MEAN CORPUSCULAR HGB CONC 31.3 g/dL (31-35); MONOCYTES # (AUTO) 0.2 (0.2-0.8); MONOCYTES % 1.4 % (4.4-11.3); NEUTROPHILS # (AUTO) 15.5 (2.1-6.9); NEUTROPHILS % 91.6 % (38.7-80.0); PLATELET COUNT 201 x10e3/uL (140-360); RED BLOOD COUNT 2.99 x10e6/uL (4.3-5.7); RED CELL DISTRIBUTION WIDTH 15.9 % (11.7-14.4)
[2020-07-20 06:17] LABS: ANION GAP 17.5 mmol/L (8-16); CALCIUM 7.1 mg/dL (8.4-10.2); CREATININE, SERUM 3.7 mg/dL (0.72-1.25); POTASSIUM 4.5 mmol/L (3.5-5.1)
[2020-07-20] MEDS: INSULIN LISPRO 100 UNIT/1 ML 3ML VIAL SQ SCH ×3 (06:44→17:50)
[2020-07-20] MEDS: HYDRALAZINE HCL 25 MG TAB PO SCH ×2 (08:08→17:00)
[2020-07-20] MEDS: ASPIRIN 325 MG TAB PO SCH (08:09)
[2020-07-20] MEDS: ASCORBIC ACID 500 MG TAB PO SCH ×2 (08:09→17:50)
[2020-07-20] MEDS: FENTANYL 2000MCG/NS 250 250 ML IV PRN (08:09)
[2020-07-20] MEDS: BALSAM PERU/CASTOR OIL 60 GM OINT...G. TP SCH (08:09)
[2020-07-20] MEDS: OYST-CAL-D 500MG TABLET PO SCH ×2 (08:09→17:49)
[2020-07-20] MEDS: TOBRAMYCIN 40 MG/ML 2ML VIAL INH SCH ×3 (14:00→22:40)
[2020-07-21] VITALS (18 sets, daily range): BP systolic 89–158; BP diastolic 55–79
[2020-07-21] MEDS: FENTANYL 2000MCG/NS 250 250 ML IV PRN (01:03)
[2020-07-21] MEDS: PROPOFOL IV EMULSION 10MG/ML 100 ML IV PRN ×3 (01:04→19:34)
[2020-07-21 06:18] LABS: BASOPHILS # (AUTO) 0.1 (0.0-0.1); BASOPHILS % 0.5 % (0.0-1.0); EOSINOPHILS # (AUTO) 0.3 (0.0-0.4); EOSINOPHILS % 1.2 % (0.0-6.0); HEMATOCRIT 28.6 % (38.2-49.6); HEMOGLOBIN 9.2 g/dL (14.0-18.0); LYMPHOCYTES # (AUTO) 0.6 (1.0-3.2); LYMPHOCYTES % 2.4 % (18.0-39.1); MEAN CORPUSCULAR HEMOGLOBIN 28.8 pg (28-32); MEAN CORPUSCULAR HGB CONC 32.2 g/dL (31-35); MEAN CORPUSCULAR VOLUME 89.7 fL (81-99); MONOCYTES # (AUTO) 0.4 (0.2-0.8); MONOCYTES % 1.6 % (4.4-11.3); NEUTROPHILS # (AUTO) 22.4 (2.1-6.9); NEUTROPHILS % 92.2 % (38.7-80.0); PLATELET COUNT 235 x10e3/uL (140-360); RED BLOOD COUNT 3.19 x10e6/uL (4.3-5.7); RED CELL DISTRIBUTION WIDTH 15.6 % (11.7-14.4)
[2020-07-21] MEDS: INSULIN LISPRO 100 UNIT/1 ML 3ML VIAL SQ SCH ×4 (06:26→17:37)
[2020-07-21 06:36] LABS: ANION GAP 18.8 mmol/L (8-16); CALCIUM 7.5 mg/dL (8.4-10.2); CREATININE, SERUM 4.64 mg/dL (0.72-1.25); POTASSIUM 4.8 mmol/L (3.5-5.1)
[2020-07-21 08:23] LABS: LYMPHOCYTES % (MANUAL) 3 % (19-48); METAMYELOCYTES % (MANUAL) 2 % (0-0); MONOCYTES % (MANUAL) 2 % (3.4-9.0); NEUTROPHILS % (MANUAL) 93 % (40-74); PLATELET ESTIMATE ADEQUATE; PLATELET MORPHOLOGY COMMENT NORMAL; RBC MORPHOLOGY COMMENT ABNORMAL; TOXIC GRANULATION SLIGHT
[2020-07-21 08:24] LABS: ANISOCYTOSIS SLIGHT
[2020-07-21] MEDS: HYDRALAZINE HCL 25 MG TAB PO SCH ×2 (09:00→17:00)
[2020-07-21] MEDS: ASCORBIC ACID 500 MG TAB PO SCH ×2 (09:44→17:35)
[2020-07-21] MEDS: ASPIRIN 325 MG TAB PO SCH (09:44)
[2020-07-21] MEDS: OYST-CAL-D 500MG TABLET PO SCH ×2 (09:44→17:35)
[2020-07-21] MEDS: BALSAM PERU/CASTOR OIL 60 GM OINT...G. TP SCH (11:12)
[2020-07-21] MEDS: ACETAMINOPHEN 325 MG TAB PO PRN (12:30)
[2020-07-21] MEDS: AMIODARONE HCL 900 MG in DEXTROSE 5 % 500ML BOTTLE 500 ML IV SCH (12:45)
[2020-07-21] MEDS ORDERED: AMIODARONE HCL 100 ML IV ONE (12:54)
[2020-07-21] MEDS ORDERED: AMIODARONE HCL 360MG 200 ML IV SCH ×2 (13:00→18:00)
[2020-07-21] MEDS ORDERED: AMIODARONE HCL 150 MG in DEXTROSE 5% 100ML 100 ML IV SCH (13:30)
[2020-07-21] MEDS ORDERED: AMIODARONE HCL 150MG 100 ML IV SCH (13:30)
[2020-07-21] MEDS: METRONIDAZOLE 500MG/NS 100ML 100 ML IV SCH ×2 (14:03→21:45)
[2020-07-21] MEDS ORDERED: CEFEPIME HCL 1 GM VIAL IV SCH (17:00)
[2020-07-21] MEDS ORDERED: CEFEPIME 1GM/NS 0.9% 50 ML 50 ML IV SCH (17:00)
[2020-07-21] MEDS: TOBRAMYCIN 40 MG/ML 2ML VIAL INH SCH (20:10)
[2020-07-22] VITALS (11 sets, daily range): BP systolic 53–178; BP diastolic 36–78
[2020-07-22] MEDS: PROPOFOL IV EMULSION 10MG/ML 100 ML IV PRN (02:08)
[2020-07-22] MEDS ORDERED: DEXTROSE 5% 1,000 ML IV ONE (05:20)
[2020-07-22] MEDS ORDERED: SODIUM BICARBONATE 8.4% SYRING 150 ML ONE (05:20)
[2020-07-22] MEDS ORDERED: EPINEPHRINE HCL SYRINGE ONE ×2 (05:23→16:42)
[2020-07-22] MEDS ORDERED: SODIUM CHLORIDE 0.9% 250ML 250 ML ONE (05:23)
[2020-07-22 05:33] LABS: BASOPHILS # (AUTO) 0.2 (0.0-0.1); BASOPHILS % 0.5 % (0.0-1.0); EOSINOPHILS # (AUTO) 0.3 (0.0-0.4); HEMATOCRIT 32.2 % (38.2-49.6); LYMPHOCYTES # (AUTO) 2.9 (1.0-3.2); LYMPHOCYTES % 8.6 % (18.0-39.1); MEAN CORPUSCULAR HEMOGLOBIN 28.6 pg (28-32); MEAN CORPUSCULAR HGB CONC 31.1 g/dL (31-35); MONOCYTES # (AUTO) 0.8 (0.2-0.8); MONOCYTES % 2.5 % (4.4-11.3); NEUTROPHILS # (AUTO) 27.5 (2.1-6.9); NEUTROPHILS % 82.6 % (38.7-80.0); PLATELET COUNT 191 x10e3/uL (140-360)
[2020-07-22 05:50] LABS: ANION GAP 26.2 mmol/L (8-16); CALCIUM 7.6 mg/dL (8.4-10.2); CREATININE, SERUM 5.76 mg/dL (0.72-1.25)
[2020-07-22 05:53] LABS: POTASSIUM 6.2 mmol/L (3.5-5.1)
[2020-07-22] MEDS: AMIODARONE HCL 900 MG in DEXTROSE 5 % 500ML BOTTLE 500 ML IV SCH ×2 (05:56→09:27)
[2020-07-22] MEDS: TOBRAMYCIN 40 MG/ML 2ML VIAL INH SCH (06:00)
[2020-07-22] MEDS ORDERED: MAGNESIUM SULFATE 2GM/50ML 50 ML IV ONE (06:00)
[2020-07-22] MEDS ORDERED: DEXTROSE 5% IV PRN (06:00)
[2020-07-22] MEDS ORDERED: EPINEPHRINE HCL IV PRN (06:00)
[2020-07-22] MEDS: METRONIDAZOLE 500MG/NS 100ML 100 ML IV SCH (06:03)
[2020-07-22] MEDS ORDERED: SODIUM BICARBONATE 8.4% 150 ML in SODIUM CHLORIDE 0.9% 1000ML 1,000 ML IV SCH (06:15)
[2020-07-22] MEDS: INSULIN LISPRO 100 UNIT/1 ML 3ML VIAL SQ SCH ×4 (06:37→18:00)
[2020-07-22] MEDS ORDERED: CALCIUM GLUCONATE 10% INJ 4.65 MEQ in SODIUM CHLORIDE 0.9% 50ML 50 ML IV ONE (07:00)
[2020-07-22 07:12] LABS: MAGNESIUM 2.5 MG/DL (1.3-2.1); PHOSPHORUS 5.9 MG/DL (2.3-4.7)
[2020-07-22] MEDS ORDERED: CALCIUM GLUCONATE 10% INJ 4.65 MEQ in SODIUM CHLORIDE 0.9% 50ML 50 ML IV PRN (08:45)
[2020-07-22] MEDS: HYDRALAZINE HCL 25 MG TAB PO SCH ×2 (09:00→14:24)
[2020-07-22 10:30] LABS: ANION GAP 24.7 mmol/L (8-16); CALCIUM 7.5 mg/dL (8.4-10.2); CREATININE, SERUM 5.77 mg/dL (0.72-1.25); POTASSIUM 5.7 mmol/L (3.5-5.1)
[2020-07-22] MEDS: OYST-CAL-D 500MG TABLET PO SCH ×2 (11:46→14:24)
[2020-07-22] MEDS: ASCORBIC ACID 500 MG TAB PO SCH ×2 (11:46→14:24)
[2020-07-22] MEDS: ASPIRIN 325 MG TAB PO SCH (11:46)
[2020-07-22] MEDS: BALSAM PERU/CASTOR OIL 60 GM OINT...G. TP SCH (11:47)
[2020-07-22] MEDS ORDERED: TRIMETHOPRIM/SULFAMETHOXAZOLE 160 MG in DEXTROSE 5% 250ML 250 ML IV SCH (13:00)
[2020-07-22] MEDS ORDERED: SODIUM BICARBONATE 8.4% INJ 50 ML SYR ONE (16:42)
[2020-07-22] MEDS ORDERED: MAGNESIUM SULFATE ONE (16:42)
[2020-07-22] MEDS ORDERED: SODIUM CHLORIDE FLUSH 10 ML SYR ONE (16:42)
[2020-07-22] MEDS ORDERED: AMIODARONE HCL INJ 150MG/3ML ONE (16:42)
[2020-07-22] MEDS ORDERED: DEXTROSE 50% SYRINGE 50 ML IV ONE (16:42)
[2020-07-22] MEDS ORDERED: LORAZEPAM INJ 2 MG/ML VIAL IV PRN (18:30)
[2020-07-22] MEDS ORDERED: MORPHINE SULFATE INJ 2 MG/ML SYR IV PRN (18:30)
== END 2020-07-22 23:40 | disposition expired | DRG 870 ==
LOC: FSED 21:05 → ERHOLD 21:10 → FSED 21:12 → UNDOADMIN 22:22 → ERHOLD 22:22 → ICU 23:45
PROVIDERS: ADMIT Internal Medicine; ATTEND Internal Medicine
PROC: 8E0ZXY6 Isolation (ICD-10-PCS; 2020-07-05)
PROC: 02HV33Z Insertion of Infusion Device into Superior Vena Cava, Percutaneous Approach (ICD-10-PCS; 2020-07-06)
PROC: 5A1D70Z Performance of Urinary Filtration, Intermittent, Less than 6 Hours Per Day (ICD-10-PCS; 2020-07-06)
PROC: 3E04317 Introduction of Other Thrombolytic into Central Vein, Percutaneous Approach (ICD-10-PCS; 2020-07-07)
PROC: 30243N1 Transfusion of Nonautologous Red Blood Cells into Central Vein, Percutaneous Approach (ICD-10-PCS; 2020-07-07)
PROC: 0BH17EZ Insertion of Endotracheal Airway into Trachea, Via Natural or Artificial Opening (ICD-10-PCS; 2020-07-10)
PROC: 5A1955Z Respiratory Ventilation, Greater than 96 Consecutive Hours (ICD-10-PCS; 2020-07-10)
PROC: 5A1955Z Respiratory Ventilation, Greater than 96 Consecutive Hours (ICD-10-PCS; principal; 2020-07-14)
PROC: 0BH18EZ Insertion of Endotracheal Airway into Trachea, Via Natural or Artificial Opening Endoscopic (ICD-10-PCS; 2020-07-14)
DX: A41.9 Sepsis, unspecified organism (principal); U07.1 COVID-19; N17.0 Acute kidney failure with tubular necrosis; I63.9 Cerebral infarction, unspecified; J15.8 Pneumonia due to other specified bacteria; R65.21 Severe sepsis with septic shock; J96.01 Acute respiratory failure with hypoxia; E87.2 Acidosis; G81.94 Hemiplegia, unspecified affecting left nondominant side; G93.1 Anoxic brain damage, not elsewhere classified; D68.9 Coagulation defect, unspecified; D68.69 Other thrombophilia; E44.0 Moderate protein-calorie malnutrition; I46.9 Cardiac arrest, cause unspecified; R00.0 Tachycardia, unspecified; R91.1 Solitary pulmonary nodule; A41.4 Sepsis due to anaerobes; D63.1 Anemia in chronic kidney disease; E87.5 Hyperkalemia; D72.823 Leukemoid reaction; Z68.22 Body mass index [BMI] 22.0-22.9, adult; L89.159 Pressure ulcer of sacral region, unspecified stage
CPT/HCPCS: 31500; 36415; 36556; 36600; 70450; 70551; 71045; 71250; 74018; 74470; 76770; 76937; 77001; 80048; 80053; 81001; 82550; 82553; 82607; 82805; 82948; 83090; 83735; 84100; 84484; 85025; 85597; 85610; 85613; 85730; 86704; 86705; 86706; 86850; 86900; 86920; 87040; 87070; 87186; 87205; 87340; 87350; 90962; 92950; 93005; 93306; 94002; 94003; 94640; 96372; 97139; 99251; 99284; J0171; J0360; J0456; J0610; J0692; J0696; J1100; J1450; J1644; J1650; J1817; J2020; J2150; J2250; J2405; J2543; J3260; J3370; J3475; J7030; J7040; J7050; J7070; J7799; P9016